=== PATIENT | female | born 1975 | race Caucasian/White ===

== ENCOUNTER 2016-07-18 06:23 | Day surgery (SDC) | payer OTHER ==
--- NOTE | ~2016-07-18 | OP ---
Record Of Operation [facility] [address] [place]. [address] NAME: DEEP MARTINEZ : 73 STATUS : REG [facility] PAT#: [id number] AGE: 40 ADM/REG DATE : 07/18/16 MR#: [id number] REPORT SERV DATE: 07/18/16 DICTATED BY: DANNY STEINBERG DATE: 07/18/16 REPORT STATUS : Draft TRANSCRIBED BY: MODL DATE: 07/18/16 DATE OF PROCEDURE: 07/18/2016 PREOPERATIVE DIAGNOSIS: Chronic cholecystitis. POSTOPERATIVE DIAGNOSIS: Chronic cholecystitis. PROCEDURE: Laparoscopic cholecystectomy (two-site). DESCRIPTION OF OPERATIVE PROCEDURE: The patient was brought to the operating suite, placed in supine position, underwent satisfactory general endotracheal anesthesia without incident. The skin of the abdomen was scrubbed, prepped, and draped in usual sterile fashion. 0.5% Marcaine with epinephrine was utilized as supplemental local anesthesia. Initially, a curvilinear infraumbilical incision was performed following the previous abdominoplasty scar. The umbilical fascia was grasped and elevated. A disposable Veress insufflation needle was inserted through the umbilical fascia into the peritoneal cavity. Intraperitoneal tip location ascertained using saline hanging drop method. CO2 insufflated for pressure of 15 mmHg throughout the case. After adequate insufflation pressure obtained, Veress needle was removed, disposable bladed 11 mm trocar inserted through the umbilical fascia into the peritoneal cavity following which a rigid forward-viewing 10 mm laparoscope was inserted. Visualization intraabdominal parietes revealed no evidence of injury from initial insufflation or puncture. A cursory examination of the pelvis was normal. There was one tiny omental lesion to the dome of the bladder. Attention was turned to the upper abdomen and an additional 5 mm trocar placed just to the right of falciform ligament. Additional 5 mm grasping instrument inserted through the umbilical fascia next to the umbilical trocar. The fundus and body of the gallbladder grasped and elevated. There were surprisingly dense periduodenal adhesions to the gallbladder wall that were taken down with a combination of blunt and cautery dissection. Dissection of the triangle of Calot was successful in identifying and skeletonizing the cystic duct and cystic duct and common duct junction as well as the cystic artery. Both of these structures were controlled with multiple applications of the Weck 5 mm polymer clip system and divided. Then using spatula cautery dissection, the peritoneal attachments to the gallbladder and liver were divided. The gallbladder was removed from the subhepatic space. Hemostasis was assured. Next, camera switched to the 5 mm epigastric port. The Endo retrieval pouch was inserted through the umbilical trocar. The gallbladder was placed inside the pouch. Trocars were removed. CO2 was allowed to egress from the peritoneal cavity. No muscular Record Of Operation [address] [address] NAME: DEEP MARTINEZ : 73 STATUS : REG [facility] PAT#: [id number] AGE: 40 ADM/REG DATE : 07/18/16 MR#: [id number] REPORT SERV DATE: 07/18/16 DICTATED BY: DANNY STEINBERG DATE: 07/18/16 REPORT STATUS : Draft TRANSCRIBED BY: BELÉN DATE: 07/18/16 bleeding was noted. The gallbladder was retrieved through the umbilicus inside the pouch and delivered. It was opened and found to contain no stones. CO2 was allowed to egress from the peritoneal cavity. The umbilicus closed with figure-of- eight suture of 0 Vicryl, subcutaneous tissue closed at all sites with interrupted 4-0 Vicryl, running subcuticular stitch 4-0 Vicryl for the skin. Dermabond skin adhesive placed. The patient tolerated the procedure well and was returned to PACU in stable condition. At the termination of the procedure, sponge, needle, lap, and instrument counts correct x3. ESTIMATED BLOOD LOSS: Less than 5 mL. FELIPE/BELÉN Danny Steinberg M.D. / [id number] CC: Chin May MD
[~2016-07-18 06:23] MED LIST: ADDERALL XR20 MG PO; PROAIR HFA INH; SYMBICORT 160/41 INH INH
== END 2016-07-18 23:59 | disposition home or self-care (01) ==
LOC: MSC 06:23
PROVIDERS: Specialist
PROC: 0FT44ZZ Resection of Gallbladder, Percutaneous Endoscopic Approach (ICD-10-PCS; principal; 2016-07-18 07:45)
DX: K81.1 Chronic cholecystitis (principal); J45.909 Unspecified asthma, uncomplicated; K21.9 Gastro-esophageal reflux disease without esophagitis; Z88.2 Allergy status to sulfonamides; Z88.8 Allergy status to other drugs, medicaments and biological substances; Z91.013 Allergy to seafood; Z79.899 Other long term (current) drug therapy
CPT/HCPCS: 84703; 88304; A9270-GY; J0690; J2250; J2405; J2550; J2710; J3010